=== PATIENT | female | born 2000 | race Caucasian/White ===

== ENCOUNTER 2024-07-22 08:27 | Emergency (ER) | payer MEDICAID ==
[~2024-07-22] VITALS: Ht 162.6 cm; Wt 76.0 kg
[2024-07-22 08:41] VITALS: O2SAT 99
[2024-07-22] MEDS: ACETAMINOPHEN 325MG TABLET PO ONE (09:23)
[2024-07-22] MEDS: ONDANSETRON 4MG ODT PO ONE (09:24)
[2024-07-22] MEDS ORDERED: ACET-2708 MT (10:07)
[2024-07-22] MEDS ORDERED: ONDA-239 PO (10:07)
[2024-07-22 10:34] VITALS: BP 134/78; PULSE 74; RESP 18; TEMP 37.11408; O2SAT 99
== END 2024-07-22 10:40 | disposition home or self-care (01) ==
LOC: ER 08:27
DX: R51.9 Headache, unspecified (principal)
CPT/HCPCS: 99283; 81025; Q0162